=== PATIENT | female | born 1995 | race Caucasian/White ===

== ENCOUNTER 2017-03-01 01:15 | Inpatient (IN) | payer OTHER ==
[~2017-03-01] VITALS: Ht 162.6 cm; Wt 63.4 kg
[~2017-03-01 01:15] MED LIST: ETON1IMP2; LORA-741 PO; SERT25TA PO
[2017-03-01 01:27] VITALS: O2SAT 97
[2017-03-01] MEDS ORDERED: SODIUM CHLORIDE 0.9% 1000ML 1,000 ML IV STA (01:27)
[2017-03-01 01:52] LABS: BASO % 0.3 %; BASO ABS # 0.02 K/uL (0-0.2); EOS % 1.5 %; EOS ABS # 0.09 K/uL (0-0.5); HEMATOCRIT 41.8 % (37-47); HEMOGLOBIN 14.6 g/dL (12.0-16.0); IG# 0.01 K/uL (0.00-0.02); LYMPH % 48.7 %; LYMPH ABS # 2.99 K/uL (1.2-3.4); MEAN CELL VOLUME 91.3 fL (80-100); MEAN CORPUSCULAR HEMOGLOBIN 31.9 pg (25-34); MEAN CORPUSCULAR HGB CONC 34.9 g/dl (32-36); MEAN PLATELET VOLUME 9.1 fL (7.4-10.4); MONO ABS # 0.55 K/uL (0.11-0.59); NEUT % 40.3 %; NEUT ABS # 2.48 K/uL (1.4-6.5); PLATELET COUNT 251 K/uL (130-400); RED CELL DISTRIBUTION WIDTH SD 43.1 fL (36.4-46.3); WHITE BLOOD COUNT 6.14 K/uL (4.8-10.8)
[2017-03-01] MEDS ORDERED: NORG1TAB23 PO (02:05)
[2017-03-01] MEDS ORDERED: DIFL500T PO ×2 (02:06→13:42)
[2017-03-01 02:08] LABS: ALBUMIN 3.3 gm/dl (3.4-5.0); CALCIUM 8.8 mg/dl (8.5-10.1); CREATININE 0.88 mg/dl (0.60-1.20); POTASSIUM 3.4 mmol/L (3.5-5.1)
[2017-03-01 02:19] LABS: TOTAL PROTEIN 7.7 gm/dl (6.4-8.2)
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
[2017-03-01] MEDS ORDERED: PANTOprazole SOD 40 MG TAB PO STA (07:08)
--- NOTE | 2017-03-01 07:13 | EMERGENCY ROOM VISIT NOTE ---
ED Visit Note First contact with patient: 06:37 I received this patient at change of shift signout from Dr. Farah. Please see his note for initial history and physical examination. The patient is a 21- year-old female who presented to the emergency department for an evaluation of mental health problems. The patient took a handful of arthritis medication last evening. She also drank a significant amount of alcohol. According to her significant other she may have been having some depression symptoms for the last few days. The patient was medically cleared last evening with the exception of an elevated alcohol level. I evaluated the patient this morning and she was awake and alert. She does have some upper GI upset and medication was ordered for this. The patient at this time is awaiting mental health evaluation. A 302 petition was filled out by the night emergency Department employment case manager. The patient has no other complaints at this time. Her significant other is at the bedside. When I questioned the patient about what medication she actually took she was very vague. She'll be admitted to taking her arthritis medication. The patient was found to have a slight elevation in her aspirin level. She started to have some nausea and vomiting this morning although I think it is likely related to the alcohol that she drank mixed with the NSAID. This reason repeat aspirin levels were drawn. The Poison Control Center was also consult. The patient's aspirin level peaked and started to fall and never santos above 30. The patient is asymptomatic at this time. She was medically cleared and at this time is being evaluated by the mental health case delegate for further management and likely for bed search and placement The patient was evaluated by the delegate from [address] [place] [address] and was felt to be a good candidate for inpatient management here. She was taken to her inpatient room.
[2017-03-01] MEDS ORDERED: ONDANSETRON 4MG OD TAB PO ONE (07:15)
[2017-03-01] MEDS ORDERED: ACETAMINOPHEN 500 MG TAB PO STA (12:38)
[2017-03-01] MEDS ORDERED: BISMUTH SUBSALICYLATE PER ML OMNICELL CHARGE PO PRN (12:45)
[2017-03-01] MEDS ORDERED: hydrOXYzine HCL 25 MG TAB PO PRN (12:45)
[2017-03-01] MEDS ORDERED: LORAZEPAM 0.5 MG TAB PO PRN (12:45)
[2017-03-01] MEDS ORDERED: MAGNESIUM HYDROXIDE SUSP 30 ML UDC PO PRN (12:45)
[2017-03-01] MEDS ORDERED: ALUMINUM/MAGNESIUM SUSP 30 ML UDC PO PRN (12:45)
[2017-03-01] MEDS ORDERED: SODIUM CHLORIDE 0.65% NA SOLN 45 ML (OCEAN) PRN (12:45)
[2017-03-01 12:59] VITALS: O2SAT 98
[2017-03-01] MEDS ORDERED: VENL75CA PO (13:42)
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
[2017-03-01] MEDS ORDERED: ONDANSETRON 4MG OD TAB PO PRN (14:00)
[2017-03-01 14:13] VITALS: BP 120/77; PULSE 114; TEMP 36.7; BMI 24.0
[2017-03-01] MEDS ORDERED: VENLAFAXINE HCL XR 75 MG CAPXR PO ONE (14:45)
[2017-03-01] MEDS ORDERED: ACETAMINOPHEN 325 MG TAB PO PRN (15:00)
[2017-03-01] MEDS: ORAL CONTRACEPTIVE: ORDER AWAITING ACTION SCH (16:00)
[2017-03-01] MEDS: hydrOXYzine HCL 25 MG TAB PO PRN (18:18)
[2017-03-02 06:59] VITALS: BP_SYST 116; BP_SYST 120; BP_DIAS 79; BP_DIAS 86; PULSE 92; PULSE 99; TEMP 36.9
[2017-03-02 07:00] VITALS: Ht 162.6 cm; Wt 63.4 kg
[2017-03-02] MEDS: ORAL CONTRACEPTIVE: ORDER AWAITING ACTION SCH ×3 (08:00→16:00)
[2017-03-02] MEDS: VENLAFAXINE HCL XR 75 MG CAPXR PO SCH (08:23)
[2017-03-02] MEDS ORDERED: SERTRALINE HCL 50 MG TAB PO SCH (09:00)
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
[2017-03-02] MEDS: NORGESTIMATE ETHINYL ESTRADIOL PO SCH (19:24)
[2017-03-03 06:59] VITALS: BP_SYST 117; BP_DIAS 78; BP_DIAS 80; PULSE 77; PULSE 90; TEMP 36.8
[2017-03-03] MEDS: NORGESTIMATE ETHINYL ESTRADIOL PO SCH (08:01)
[2017-03-03] MEDS: VENLAFAXINE HCL XR 75 MG CAPXR PO SCH (08:01)
--- NOTE | 2017-03-03 10:35 | Psych Management Progress Note ---
Psychiatry Miscellaneous Date of Service: Mar 03, 2017. Patient seen, MS assessed. Rates mood as 9/10 and "happy". Encouraged cooperation with care and treatment plan as outlined by allied health prescriber. She is positive about family meeting with .
--- NOTE | 2017-03-03 14:46 | Psychiatric Progress Notes ---
Progress Note Date of Service Mar 03, 2017. Interval History Brissa Bird is a 21-year-old female from [place] who has a history of depression and was admitted voluntarily on Mar 01, 2017 at 13:20 after a suicide attempt by overdose on Dolobid (arthritis medication) and alcohol. Chief Complaint "I feel like I've worked on things". Subjective Patient was seen & assessed interval progress reviewed with Treatment Team. Staff reports patient is to have family meeting with tomorrow morning to discuss safety planning and mitigate risk factors. Pt has aftercare in place at [facility]. Pt was seen today to assess progress since admission. She reports she feels like she has gotten a lot out of being here, but now feels that she experiencing more stress as she is not able to do things at home. Pt reports the combination of school, working overtime, and situations with her husbands children led to her feeling overwhelmed. We discussed plans to resolve that moving forward. Pt stated her plans to work shifts for her , allowing her to be able to focus on school work. She also states her spoke with his ex about his twin daughters and his ex may be allowing the patient to participate in visits again. We discussed safety planning and patient was able to suggest distraction activities as well. Pt plans to further discuss safety planning at her meeting tomorrow morning with her . Pt also reported plans to abstain from alcohol use for a while after discharge as she has noticed its effect on her. She reports drink 1 6-pack over the course of the day on her days off, but denies that it is a problem for her. Pt denies SI/HI, A/V hallucinations, and other psychosis. Review of Systems Psych: denies symptoms other than stated above Constitutional: denied Cardiovascular: denied GI: denied Neurologic: denied Musculoskeletal: reports hip pain Remainder of 10 body systems also reviewed and denied other than noted above. Sleep Information Total Hours of Sleep: 6.50 Meal Information Percent of Breakfast Consumed: 80 Percent of Lunch Consumed: 80 Percent of Dinner Consumed: 100 Mental Status Exam During interview pt is: alert and oriented, cooperative (but bargaining for early discharge) Appearance: appropriately dressed (pajama pants and a T-shirt) Eye contact is: good Motor behavior is: steady gait & station Speech: normal in rate, rhythm & volume Affect: depressed, anxious Mood is: other ("better") Thought process: goal directed, clear, coherent Thought content: preoccupation (with discharge) Suicidal thought are: denied, Intent: denied Homicidal thoughts are: denied Hallucinations: denies auditory, denies visual Cognition: memory grossly intact, attention grossly intact, language grossly intact Intelligence estimated to be: average Insight: fair Judgement: fair Impression Improvement in mood symptoms over the past day. Pt is still preoccupied with discharge as she feels she as already gotten everything she can out of groups on the unit. Pt is eager to go home today due to hip pain and an opportunity to visit with her 's children. Pt and have family meeting tomorrow morning and would be ideal for them to address risk factors in a supervised environment with the help of a social media director. Pt has done a lot of planning with over the phone, but a confirmation of mitigation of risk factors in a formal meeting would be helpful. Pt has taken steps to address stressors and process what led to her suicide attempt, however, formal meeting with would clarify readiness for discharge as she is at high-risk for decompensation if risk factors are not addressed. Plan (1) Depression 03/01 - The patient reports improvement in her depressive symptoms since starting venlafaxine XR, with acute worsening in the context of family discord yesterday. We'll continue to assess and monitor her symptoms, and consider increasing her dose while here. 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 We will also need to coordinate care with her PCP, Dr. Fraser, who is currently prescribing her medication. - Recommend a family meeting with her , and possibly other family members as well. - Encourage participation in unit groups and therapy, work on healthy coping skills, and to discharge safety plan. 03/02 - Continue venlafaxine XR at home dose, refer for outpatient therapy and psychiatric appointments at [facility], and schedule family meeting with . - Patient will need to work on a safety plan and share that with her . 03/03 - Continue venlafaxine XR 75mg. Pt to follow up with [facility] - Family meeting with scheduled for tomorrow morning. Should plan to discuss safety planning during that meeting with present. - Would consider discharge if meeting goes well. (2) Generalized anxiety disorder 03/01 - patient meets criteria for generalized anxiety disorder, continue medication as above. (3) Medication overdose 03/01 - patient is nauseated and vomiting today in the context of her alcohol and NSAID overdose. Will order ondansetron 4 mg as needed, and encourage hydration. Monitor vital signs. 03/02 - The patient's AUDIT score suggests problematic drinking (Zone III WHO). Brief intervention was offered and accepted Intervention was greater than 5 min in length. Brief interventions include: 1. Assess Readiness to Quit, 2. Advise: Help Patient to Reduce or Abstain from Alcohol, 3. Agree: Set Specific, Feasible Goals, 4. Assist: Anticipate barriers, Problem-Solving Solutions. Social work to 5. Arrange: Referrals to appropriate treatment. Summary of intervention: The patient is in precontemplation stage with regards to transtheoretical model of change. She has limited insight into the concerns about her alcohol use and its negative impact to mood and safety, and does not wish to change her drinking. 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 The patient is advised to decrease alcohol consumption due to depressant effects and risk of interactions with prescription medications. The patient agreed to work on healthy coping skills, and will be provided with recovery materials to continue to education self on how to cope with their condition without drinking. Continue oral contraceptives; patient will need to bring it in from home as it is nonformulary. 03/02 - patient is on the last day of her pack of pills, and states she has no further refills. Nursing staff given permission to call prescription for one- month supply in to her pharmacy, and have family bring it in so she can continue to take it while here. Leading to follow-up with her outpatient physician upon discharge. Discharge / Aftercare Planning Psychiatrist: Name: Raquel Leigh - Psychiatrist to be assigned after initial appointment Date of Appointment: Mar 13, 2017 Time of Appointment: 3:00 pm Appointment Notes: [address] [facility] [id number] Therapist: Name: Raquel Leigh - Aubrey Zepeda - bring MA card and [facility] card Date of Appointment: Mar 13, 2017 Time of Appointment: 3:00 pm Appointment Notes: [address] [facility] [id number] Visit Code E&M Code: 67476 Inventory Assets Strengths: Supportive , in school Needs: Outpatient mental health services, therapy, address stressors Risk Factors Assessment : Yes /single/: No Higher / Fall in social status: No Access to guns: No Health problems: Yes Mental Health Diagnoses: Yes Substance use disorders: Yes Previous attempt: No Family history of suicide: No Previous psychiatric stay: No Hopelessness: Yes Protective Factors Assessment Oriental Orthodox beliefs: Yes : Yes Responsible for young children: No Employed: Yes Stable relationships: No Supportive family: No Good rapport with provider: No Data Vital Signs Last 24 Hrs: Date Time Temp Pulse Resp B/P (MAP) Pulse Ox O2 Delivery O2 Flow Rate FiO2 03/03/17 06:59 36.8 77 16 117/78 90 117/80 Meds Administered Last 24 Hrs: Meds Administered (Past 24Hrs) Medications (Trade) Dose Ordered Sig/Leandro Route Start Time Stop Time Status Last Admin Dose Admin Venlafaxine HCl (effeXOR EXTENDED REL CAP) 75 mg DAILY PO 03/02/17 09:00 04/01/17 08:59 03/03/17 08:01 75 MG Venlafaxine HCl (effeXOR EXTENDED REL CAP) 75 mg NOW ONCE PO 03/01/17 14:45 03/01/17 14:46 DC 03/01/17 15:23 75 MG Ethinyl Estradiol/ Norgestimate (Tri-Estarylla 0.18/0.215/0.25 Mg-35 Mcg) 1 tab DAILY PO 03/03/17 09:00 04/02/17 08:59 03/03/17 08:01 1 TAB Problem Qualifiers (1) Depression: Depression Type: major depressive disorder Major depression recurrence: recurrent Active/Remission status: currently active Major depression episode severity: severe Psychotic features: without psychotic features Qualified Codes: F33.2 - Major depressive disorder, recurrent severe without psychotic features
[2017-03-03] MEDS: hydrOXYzine HCL 25 MG TAB PO PRN (22:00)
[2017-03-04 06:47] VITALS: BP_SYST 108; BP_DIAS 73; BP_DIAS 74; PULSE 87; PULSE 99; TEMP 36.8
[2017-03-04] MEDS: VENLAFAXINE HCL XR 75 MG CAPXR PO SCH (08:39)
[2017-03-04] MEDS: NORGESTIMATE ETHINYL ESTRADIOL PO SCH (08:40)
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
[2017-03-04] MEDS ORDERED: DESTROY THIS MEDICATION ONE (10:45)
--- NOTE | 2017-03-04 16:01 | Psych Management Progress Note ---
Psychiatry Miscellaneous Date of Service: Mar 04, 2017. I participated in the medical decision making around the patient's discharge and agree that she doesn't meet criteria for involuntary commitment. She has safety plan and is requesting discharge.
== END 2017-03-04 10:56 | disposition home or self-care (01) | DRG 885 ==
LOC: EDBD 01:15 → C.EDB 01:17 → C.MHU 13:20
PROVIDERS: ADMIT Psychiatry & Neurology Psychiatry; ATTEND Psychiatry & Neurology Psychiatry
DX: F34.9 Persistent mood [affective] disorder, unspecified (principal); T39.092A Poisoning by salicylates, intentional self-harm, initial encounter; T51.92XA Toxic effect of unspecified alcohol, intentional self-harm, initial encounter; F10.129 Alcohol abuse with intoxication, unspecified; F41.1 Generalized anxiety disorder; Y92.019 Unspecified place in single-family (private) house as the place of occurrence of the external cause; Z96.649 Presence of unspecified artificial hip joint

== ENCOUNTER 2017-05-20 09:46 | Emergency (ER) | payer OTHER ==
[~2017-05-20] VITALS: Ht 162.6 cm; Wt 65.0 kg
[~2017-05-20 09:46] MED LIST changes: -ETON1IMP2; -LORA-741 PO; +NORG1TAB23 PO; -SERT25TA PO; +VENL75CA PO
[2017-05-20 09:48] VITALS: TEMP 36.7; Ht 162.6 cm; Wt 65.0 kg
[2017-05-20] MEDS ORDERED: SODIUM CHLORIDE 0.9% 1000ML 1,000 ML IV STA (10:20)
[2017-05-20] MEDS ORDERED: DIFL500T PO (10:52)
[2017-05-20 11:07] LABS: HEMATOCRIT 38.5 % (37-47); HEMOGLOBIN 13.1 g/dL (12.0-16.0); MEAN CORPUSCULAR HEMOGLOBIN 30.6 pg (25-34); MEAN PLATELET VOLUME 8.9 fL (7.4-10.4); PLATELET COUNT 221 K/uL (130-400); RED CELL DISTRIBUTION WIDTH CV 12.6 % (11.5-14.5); RED CELL DISTRIBUTION WIDTH SD 41.3 fL (36.4-46.3); TOTAL PROTEIN 6.8 gm/dl (6.4-8.2); WHITE BLOOD COUNT 3.13 K/uL (4.8-10.8)
[2017-05-20 11:09] LABS: ALBUMIN 3.2 gm/dl (3.4-5.0); CALCIUM 8.3 mg/dl (8.5-10.1); CREATININE 0.71 mg/dl (0.60-1.20); POTASSIUM 3.6 mmol/L (3.5-5.1)
--- NOTE | 2017-05-20 11:27 | EMERGENCY ROOM VISIT NOTE ---
ED Visit Note First contact with patient: 09:55 CHIEF COMPLAINT: Vaginal bleeding HISTORY OF PRESENT ILLNESS: This 21 year old female presents to the emergency department with complaint of vaginal bleeding for 3 weeks. She states that she started having breakthrough bleeding while she was on the control pill, which seem to come and go. She then got her period, but it never ended and she has started taking her next pack of control pills. She states that she has been having heavier bleeding since yesterday, states that she woke up in a puddle of blood this morning and has been going through one tampon every hour. She denies any significant abdominal or back pain, but states that she has had worsening abdominal cramps today that come and go, currently rates these as 6/ 10. She has not had any abdominal injuries, fever or chills, nausea or vomiting. Her menstrual periods are usually regular, but she does mention heavy and abnormal bleeding in the past secondary to being on Nexplanon. She also reports a history of an abnormal ultrasound a few years ago, stating " there were lesions in my uterus." She denies dizziness or weakness. She denies headache, neck pain, chest pain, shortness of breath, syncope, blood in the stool, diarrhea or constipation, nausea or vomiting, urinary symptoms, abnormal vaginal discharge, or unusual rash. She denies any fevers or chills. REVIEW OF SYSTEMS: A complete 10 point review of systems was reviewed with the patient with pertinent positives and negatives as per history of present illness. All else were negative. PMH: Reviewed in the chart. SOCIAL HISTORY: Patient lives at home. She denies tobacco use, admits to occasional alcohol use, denies recreational drug use. ALLERGIES: No known allergies. PHYSICAL EXAM: Vital Signs: Reviewed Nurse's notes. There was no postural hypotension. There is mild tachycardia. CONSTITUTIONAL: Pleasant and cooperative. No acute distress. Mildly dehydrated , but otherwise well appearing and well nourished. HEENT: Normocephalic, atraumatic. Pupils equal, round and reactive to light, EOMI. TMs normal. Pharynx normal. NECK: Supple, full active range of motion without discomfort. RESPIRATORY: Clear to auscultation bilaterally with no wheezing, crackles, rhonchi or stridor. Equal expansion bilaterally. CARDIOVASCULAR: Regular rate and rhythm with no murmurs, rubs or gallops. Normal peripheral perfusion. No edema. GASTROINTESTINAL: Soft, nontender, nondistended. Bowel sounds present in all quadrants. PELVIC EXAM: Deferred, patient declined this exam. MUSCULOSKELETAL: Full range of motion of all joints without discomfort. INTEGUMENTARY: No rash or other significant dermatologic conditions noted. NEUROLOGIC: Alert and oriented X 4 with normal affect. Cranial nerves II-XII grossly intact. No focal neurologic deficits noted. EMERGENCY DEPARTMENT COURSE: I examined the patient. Differential diagnosis includes dysfunctional uterine bleeding, ectopic , ovarian cyst, ovarian torsion, uterine polyps or fibroids, anemia, among others. Patient is nontender to palpation on exam of the abdomen. She is not anemic, no significant electrolyte abnormalities, normal renal and liver function. UA negative. Urine test is negative. Pelvic ultrasound was ordered, this was reviewed and is noted to be unremarkable. She was noted to be mildly tachycardic, she was given IV fluid bolus, heart rate downtrending. She was given IV Toradol for her abdominal cramps, which she reports improved her pain. Patient was offered a pelvic exam, she states that her bleeding has started to slow down some and she prefers not to do this exam today. She is feeling better overall and requesting to be discharged. 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 Patient was given discharge instructions including follow-up and return precautions, she verbalized understanding. Patient was discharged home in stable condition and ambulatory. Problem List Medical Problems: (1) Congenital hip deformity Status: Chronic (2) Depression Status: Chronic (3) No known health problems Status: Chronic Current/Historical Medications Scheduled Norgestimate-Ethinyl Estradiol (Tri-Estarylla), 1 TAB PO DAILY Venlafaxine Hcl (Effexor Xr), 1 CAP PO DAILY Scheduled PRN Diflunisal (Dolobid), 500 MG PO BID PRN for PRN Allergies Coded Allergies: No Known Allergies (Unverified , 05/20/17) Vital Signs Date Time Temp Pulse Resp B/P (MAP) Pulse Ox O2 Delivery O2 Flow Rate FiO2 05/20/17 14:45 92 17 126/97 98 05/20/17 12:49 95 18 126/96 98 Room Air 05/20/17 11:03 102 05/20/17 10:54 104 18 117/93 97 05/20/17 10:54 Room Air 05/20/17 09:48 36.7 107 18 135/88 100 Room Air Laboratory Results 05/20/17 10:35 Red Blood Count 4.28, Mean Corpuscular Volume 90.0, Mean Corpuscular Hemoglobin 30.6, Mean Corpuscular Hemoglobin Concent 34.0, Mean Platelet Volume 8.9, Neutrophils (%) (Auto) 35.2, Lymphocytes (%) (Auto) 52.1, Monocytes (%) (Auto) 10.2, Eosinophils (%) (Auto) 1.9, Basophils (%) (Auto) 0.6, Neutrophils # (Auto ) 1.10, Lymphocytes # (Auto) 1.63, Monocytes # (Auto) 0.32, Eosinophils # (Auto ) 0.06, Basophils # (Auto) 0.02 05/20/17 10:35 Test 05/20/17 10:35 05/20/17 10:55 White Blood Count 3.13 K/uL (4.8-10.8) Red Blood Count 4.28 M/uL (4.2-5.4) Hemoglobin 13.1 g/dL (12.0-16.0) Hematocrit 38.5 % (37-47) Mean Corpuscular Volume 90.0 fL (80-100) Mean Corpuscular Hemoglobin 30.6 pg (25-34) Mean Corpuscular Hemoglobin Concent 34.0 g/dl (32-36) Platelet Count 221 K/uL (130-400) Mean Platelet Volume 8.9 fL (7.4-10.4) Neutrophils (%) (Auto) 35.2 % Lymphocytes (%) (Auto) 52.1 % Monocytes (%) (Auto) 10.2 % Eosinophils (%) (Auto) 1.9 % Basophils (%) (Auto) 0.6 % Neutrophils # (Auto) 1.10 K/uL (1.4-6.5) Lymphocytes # (Auto) 1.63 K/uL (1.2-3.4) Monocytes # (Auto) 0.32 K/uL (0.11-0.59) Eosinophils # (Auto) 0.06 K/uL (0-0.5) Basophils # (Auto) 0.02 K/uL (0-0.2) RDW Standard Deviation 41.3 fL (36.4-46.3) RDW Coefficient of Variation 12.6 % (11.5-14.5) Immature Granulocyte % (Auto) 0.0 % Immature Granulocyte # (Auto) 0.00 K/uL (0.00-0.02) Stomatocytes 1+ Prothrombin Time 10.0 SECONDS (9.0-12.0) Prothromb Time International Ratio 1.0 (0.9-1.1) Activated Partial Thromboplast Time 24.0 SECONDS (21.0-31.0) Partial Thromboplastin Ratio 0.9 Anion Gap 8.0 mmol/L (3-11) Est Creatinine Clear Calc Drug Dose 106.5 ml/min Estimated GFR () 139.1 Estimated GFR (Non- 120.1 BUN/Creatinine Ratio 10.0 (10-20) Calcium Level 8.3 mg/dl (8.5-10.1) Total Bilirubin 0.2 mg/dl (0.2-1) Aspartate Amino Transf (AST/SGOT) 84 U/L (15-37) Alanine Aminotransferase (ALT/SGPT) 49 U/L (12-78) Alkaline Phosphatase 99 U/L (45-117) Total Protein 6.8 gm/dl (6.4-8.2) Albumin 3.2 gm/dl (3.4-5.0) Globulin 3.6 gm/dl (2.5-4.0) Albumin/Globulin Ratio 0.9 (0.9-2) Urine Color YELLOW Urine Appearance CLEAR (CLEAR) Urine pH 5.5 (4.5-7.5) Urine Specific [place] 1.025 (1.000-1.030) Urine Protein NEG (NEG) Urine Glucose (UA) NEG (NEG) Urine Ketones NEG (NEG) Urine Occult Blood 2+ (NEG) Urine Nitrite NEG (NEG) Urine Bilirubin NEG (NEG) Urine Urobilinogen NEG (NEG) Urine Leukocyte Esterase NEG (NEG) Urine RBC 0-4 /hpf (0-4) Urine WBC 1-5 /hpf (0-5) Urine Epithelial Cells 0-5 /lpf (0-5) Urine Bacteria 1+ (NEG) Urine Test NEG (NEG) Medications Administered Medications (Trade) Dose Ordered Sig/Leandro Route Start Time Stop Time Status Last Admin Dose Admin Sodium Chloride 1,000 ml @ 999 mls/hr Q1H1M STAT IV 05/20/17 10:20 05/20/17 11:20 DC 05/20/17 10:51 999 MLS/HR Ketorolac Tromethamine (Toradol Inj) 15 mg NOW STAT IV 05/20/17 11:34 05/20/17 11:35 DC 05/20/17 11:39 15 MG Departure Information Impression Primary Impression: Abnormal vaginal bleeding Dispostion Home / Self-Care Condition GOOD Referrals Marco Antonio Fraser M.D. (PCP) Patient Instructions ED Bleed Irregular Vaginal, My [facility] [address] Additional Instructions Please follow-up with your [employer]PER[employer] office for further management of your abnormal bleeding. Call for an appointment. Continue taking her current oral contraceptive medication unless otherwise directed by your provider. Please return to the ER for worsening symptoms, including severe pain, persistent heavy bleeding (soaking through 2 or more pads/tampons per hour or passing large clots the size of your fist), fever/chills, severe dizziness or passing out, or any other concerns. Work Instructions Return To Work: 1 day
[2017-05-20] MEDS ORDERED: KETOROLAC TROMETHAMINE 30 MG/ML VIAL IV STA (11:34)
[2017-05-20 11:39] LABS: BASO % 0.6 %; BASO ABS # 0.02 K/uL (0-0.2); EOS % 1.9 %; EOS ABS # 0.06 K/uL (0-0.5); LYMPH % 52.1 %; LYMPH ABS # 1.63 K/uL (1.2-3.4); MONO % 10.2 %; MONO ABS # 0.32 K/uL (0.11-0.59); NEUT % 35.2 %
--- NOTE | 2017-05-20 12:38 | DIAGNOSTIC IMAGING REPORT ---
EXAMINATION: PELVIC ULTRASOUND (transabdominal and endovaginal scanning) CLINICAL HISTORY: Abnormal vaginal bleeding. History of abnormal ultrasound the past. COMPARISON STUDY: None FINDINGS: The uterus measured 6.6 x 3.2 x 3.4 cm. The endometrial stripe measured 4 mm. The right ovary measured 20 x 10 x 9 mm. The left ovary was not visualized There is no ultrasonographic evidence of ovarian torsion. It should be noted that ovarian torsion can be present with normal Doppler ultrasonographic findings. There was no evidence of pathologic free pelvic fluid. IMPRESSION: 1. Normal-appearing uterus 2. No right ovarian abnormalities identified 3. Nonvisualization of the left ovary Electronically signed by: Yoan Bray M.D. 05/20/2017 12:37 PM Dictated Date/Time: 05/20/2017 12:36 PM
[2017-05-20 14:45] VITALS: BP 126/97; PULSE 92; O2SAT 98
== END 2017-05-20 14:46 | disposition home or self-care (01) ==
LOC: C.EDB 09:48
DX: N93.9 Abnormal uterine and vaginal bleeding, unspecified (principal); F32.9 Major depressive disorder, single episode, unspecified; Z79.3 Long term (current) use of hormonal contraceptives; Z79.899 Other long term (current) drug therapy